=== PATIENT | female | born 1955 | race Two or more races ===

== ENCOUNTER 2025-04-30 18:22 | Inpatient (IN) | payer MEDICARE, MEDICAID ==
[~2025-04-30] VITALS: Ht 160 cm; Wt 62.6 kg
[2025-04-30] MEDS ORDERED: ONDANSETRON HCL/PF 4 MG/2 ML VIAL ONE (18:59)
[2025-04-30] MEDS ORDERED: FAMOTIDINE/PF INJ 20 MG/2 ML VIAL IV ONE (18:59)
[2025-04-30 19:52] LABS: PLATELET COUNT (AUTO) 310 K/uL (150-450); RED BLOOD CELL COUNT(AUTO) 4.15 MIL/uL (4.0-5.2); RED CELL DISTRIBUTION WIDTH 14.2 % (11.5-15.0); WHITE BLOOD COUNT (AUTO) 12.9 K/uL (4.3-11.0)
[2025-04-30 19:59] LABS: CALCIUM, SERUM 9.5 mg/dL (8.5-10.1); CREATININE 0.9 mg/dL (0.6-1.3); SODIUM SERUM 123 mmol/L (136-145); UREA NITROGEN, BLOOD 16 mg/dL (7-18)
[2025-04-30 20:05] LABS: ASPARTATE AMINOTRANSFERASE 41 U/L (15-37); TOTAL PROTEIN, SERUM 8.4 g/dL (6.4-8.2)
[2025-04-30] MEDS: ONDANSETRON HCL/PF 4 MG/2 ML VIAL IVP ONE (20:18)
[2025-04-30] MEDS ORDERED: KETOROLAC TROMETHAMINE INJ 30 MG/ML VIAL ONE (20:18)
[2025-04-30] MEDS: FAMOTIDINE/PF INJ 20 MG/2 ML VIAL IV ONE (20:18)
[2025-04-30] MEDS: IV NS 0.9% 1,000 ML BAG IV ONE (20:18)
[2025-04-30] MEDS: KETOROLAC TROMETHAMINE INJ 30 MG/ML VIAL IV ONE (20:19)
[2025-04-30 20:50] LABS: APPEARANCE,URINE CLEAR (CLEAR); BLOOD, URINE NEGATIVE Ery/uL (NEGATIVE); LEUKOCYTE ESTERASE ,URINE NEGATIVE (NEGATIVE); NITRITE, URINE NEGATIVE (NEGATIVE); UGLUCOSE NEGATIVE (NEGATIVE)
[2025-04-30 21:05] LABS: ADD URINE CULTURE NO; SQUAMOUS EPITHELIAL CELL,UR Few /HPF (None Seen)
[2025-04-30] MEDS: METOCLOPRAMIDE HCL 10 MG/2 ML VIAL IV ONE (21:12)
[2025-04-30 23:00] VITALS: BP_SYST 176; BP_SYST 220; BP_DIAS 110; BP_DIAS 90; TEMP 98.1; O2SAT 97
[2025-05-01] MEDS: hydrALAZINE HCL IV 20 MG VIAL IV PRN (00:33)
[2025-05-01] MEDS: IV NS 0.9% 1,000 ML IV PRN (01:39)
[2025-05-01] MEDS: KETOROLAC TROMETHAMINE 15 MG/ML VIAL IV PRN (03:19)
[2025-05-01 03:57] VITALS: BP 157/74; TEMP 98.1; O2SAT 97
[2025-05-01 06:58] LABS: PLATELET COUNT (AUTO) 292 K/uL (150-450); RED BLOOD CELL COUNT(AUTO) 3.97 MIL/uL (4.0-5.2); RED CELL DISTRIBUTION WIDTH 14.2 % (11.5-15.0); WHITE BLOOD COUNT (AUTO) 12.1 K/uL (4.3-11.0)
[2025-05-01 07:13] LABS: ASPARTATE AMINOTRANSFERASE 40.0 U/L (15-37); CALCIUM, SERUM 8.7 mg/dL (8.5-10.1); CREATININE 0.7 mg/dL (0.6-1.3); PHOSPHORUS 3.4 mg/dL (2.5-4.9); SODIUM SERUM 125.0 mmol/L (136-145); TOTAL PROTEIN, SERUM 7.8 g/dL (6.4-8.2); UREA NITROGEN, BLOOD 12.0 mg/dL (7-18)
[2025-05-01 07:30] VITALS: BP 172/78; TEMP 98.2; O2SAT 94
[2025-05-01 07:38] LABS: LDL 108.0 mg/dL (0-99)
[2025-05-01] MEDS: FAMOTIDINE/PF INJ 20 MG/2 ML VIAL IV SCH (08:31)
[2025-05-01] MEDS: ENOXAPARIN SODIUM 40 MG/0.4 ML DISP.SYRIN SQ SCH (09:00)
[2025-05-01] MEDS ORDERED: MAGN400O6 PO (12:27)
[2025-05-01] MEDS ORDERED: INSU100I30 SQ (12:27)
[2025-05-01] MEDS ORDERED: AMLO-213 PO (12:27)
[2025-05-01] MEDS ORDERED: CRAN400C PO (12:27)
[2025-05-01] MEDS ORDERED: NALO4SPR NS (12:27)
[2025-05-01] MEDS ORDERED: HYDR-3972 PO (12:27)
[2025-05-01] MEDS ORDERED: GABA-536 PO (12:27)
[2025-05-01] MEDS ORDERED: HYDR-4077 PO (12:27)
[2025-05-01] MEDS ORDERED: GLUC1KIT IJ (12:27)
[2025-05-01] MEDS ORDERED: FLUT16SP16 NS (12:27)
[2025-05-01] MEDS ORDERED: ASPI-1169 PO (12:27)
[2025-05-01] MEDS ORDERED: AMIN30LI66 PO (12:27)
[2025-05-01] MEDS ORDERED: GABA800T11 PO (12:27)
[2025-05-01] MEDS ORDERED: PANT40TA49 PO (12:27)
[2025-05-01] MEDS ORDERED: ACET-73 PO (12:27)
[2025-05-01] MEDS ORDERED: BISA10SU11 RC (12:27)
[2025-05-01] MEDS ORDERED: ONDA4TAB11 PO (12:27)
[2025-05-01] MEDS ORDERED: SENN8.6T19 PO (12:27)
[2025-05-01] MEDS ORDERED: LISI10TA29 PO (12:27)
[2025-05-01] MEDS ORDERED: LUBI24CA5 PO (12:27)
[2025-05-01] MEDS ORDERED: IBUP-2314 PO (12:27)
[2025-05-01] MEDS ORDERED: INSU100V11 SQ (12:27)
[2025-05-01] MEDS ORDERED: GUAI100S9 PO (12:27)
[2025-05-01] MEDS ORDERED: NA P133E RC (12:27)
[2025-05-01] MEDS ORDERED: INSU100V42 SQ (12:27)
[2025-05-01] MEDS ORDERED: ACET325T53 PO (12:27)
[2025-05-01] MEDS ORDERED: MELA1TAB27 PO (12:27)
[2025-05-01] MEDS ORDERED: APIX2.5T PO (12:27)
[2025-05-01] MEDS ORDERED: TRAM50TA2 PO (12:27)
[2025-05-01] MEDS ORDERED: CYCL30DR EACHEYE (12:27)
[2025-05-01] MEDS ORDERED: GLIP10TA11 PO (12:27)
[2025-05-01] MEDS ORDERED: METF-442 PO (12:27)
[2025-05-01] MEDS ORDERED: POLY15DR31 EACHEYE (12:27)
[2025-05-01] MEDS ORDERED: DOCU100T2 PO (12:27)
[2025-05-01] MEDS: SPIRONOLACTONE 25 MG TABLET PO SCH (12:46)
[2025-05-01 16:00] VITALS: BP 201/88; TEMP 98.6; O2SAT 97
[2025-05-01] MEDS: INSULIN REGULAR, HUMAN 100 UNIT/ML 3 ML VIAL SQ PRN (17:25)
[2025-05-01] MEDS ORDERED: DEXTROSE 50%-WATER 50 ML DISP.SYRIN IV PRN (17:30)
[2025-05-01] MEDS ORDERED: GABAPENTIN 400 MG CAPSULE PO PRN (17:30)
[2025-05-01] MEDS: BLOOD SUGAR DIAGNOSTIC 1 EACH STRIP IN SCH (17:53)
[2025-05-01 20:00] VITALS: BP 174/72; TEMP 98.2; O2SAT 95
[2025-05-01 20:45] VITALS: BP 152/69; O2SAT 98
[2025-05-01] MEDS: CARBOXYMETHYLCELLULOSE SODIUM 1 EA TUBE EACHEYE SCH (21:52)
[2025-05-01] MEDS: SENNOSIDES 8.6 MG TABLET PO SCH (21:53)
[2025-05-01] MEDS: APIXABAN 2.5 MG TABLET PO SCH (21:56)
[2025-05-01] MEDS: TRAMADOL HCL 50 MG TABLET PO PRN (22:02)
[2025-05-02 06:13] LABS: PLATELET COUNT (AUTO) 265 K/uL (150-450); RED BLOOD CELL COUNT(AUTO) 4.00 MIL/uL (4.0-5.2); RED CELL DISTRIBUTION WIDTH 14.0 % (11.5-15.0); WHITE BLOOD COUNT (AUTO) 10.3 K/uL (4.3-11.0)
[2025-05-02 06:37] LABS: ASPARTATE AMINOTRANSFERASE 37.0 U/L (15-37); CALCIUM, SERUM 9.0 mg/dL (8.5-10.1); CREATININE 0.7 mg/dL (0.6-1.3); PHOSPHORUS 3.4 mg/dL (2.5-4.9); SODIUM SERUM 129.0 mmol/L (136-145); TOTAL PROTEIN, SERUM 7.8 g/dL (6.4-8.2); UREA NITROGEN, BLOOD 13.0 mg/dL (7-18)
[2025-05-02 06:38] LABS: SERUM AMMONIA 17.0 umol/L (11-32)
[2025-05-02] MEDS: PANTOPRAZOLE 40 MG TABLET.DR PO SCH (06:45)
[2025-05-02] MEDS: GABAPENTIN 400 MG CAPSULE PO SCH (08:15)
[2025-05-02] MEDS: DOCUSATE SODIUM 100 MG CAPSULE PO SCH (08:16)
[2025-05-02] MEDS: LACTULOSE 10 G/15 ML UDC (PYXIS) PO SCH (08:16)
[2025-05-02] MEDS: LISINOPRIL (20MG) 20 MG TABLET PO SCH (08:16)
[2025-05-02] MEDS: METFORMIN 500 MG TABLET PO SCH (08:16)
[2025-05-02] MEDS: AMLODIPINE BESYLATE 10 MG TABLET PO SCH (08:16)
[2025-05-02] MEDS: ASPIRIN 81 MG TAB.CHEW PO SCH (08:16)
[2025-05-02] MEDS: FAMOTIDINE (20 MG) 20 MG TABLET PO SCH (08:48)
[2025-05-02] MEDS: INSULIN GLARGINE, 100 UNIT/ML CARTRIDGE SQ SCH (09:00)
[2025-05-02] MEDS ORDERED: Medication Not On Formulary EA (Lubiprostone (Amitiza) 24 MCG) PO SCH (09:00)
[2025-05-02] MEDS: PROSOURCE / PROSTAT (PYXIS) 30 ML UDC PO SCH (09:02)
[2025-05-02 09:52] VITALS: BP 197/83; TEMP 97.7; O2SAT 98
[2025-05-02 16:14] LABS: INR 1.14 (0.91-1.10)
[2025-05-02 20:00] VITALS: BP 103/55; TEMP 98.1; O2SAT 96
[2025-05-03 07:00] VITALS: BP 138/71; TEMP 98.1; O2SAT 98
[2025-05-03 07:55] LABS: ASPARTATE AMINOTRANSFERASE 51 U/L (15-37); CALCIUM, SERUM 8.7 mg/dL (8.5-10.1); CREATININE 0.9 mg/dL (0.6-1.3); SODIUM SERUM 128 mmol/L (136-145); TOTAL PROTEIN, SERUM 7.8 g/dL (6.4-8.2); UREA NITROGEN, BLOOD 15 mg/dL (7-18)
[2025-05-03] MEDS: ONDANSETRON HCL/PF 4 MG/2 ML VIAL IVP PRN (09:09)
[2025-05-03] MEDS: LACTULOSE 20 G/30 ML UDC PO SCH (09:15)
[2025-05-03 15:00] VITALS: BP 112/56; TEMP 98.2; O2SAT 95
[2025-05-03 20:00] VITALS: BP 146/69; TEMP 97.9; O2SAT 98
[2025-05-04 06:50] LABS: PLATELET COUNT (AUTO) 290 K/uL (150-450); RED BLOOD CELL COUNT(AUTO) 3.86 MIL/uL (4.0-5.2); RED CELL DISTRIBUTION WIDTH 14.7 % (11.5-15.0); WHITE BLOOD COUNT (AUTO) 10.8 K/uL (4.3-11.0)
[2025-05-04 07:10] LABS: CALCIUM, SERUM 9.0 mg/dL (8.5-10.1); CREATININE 0.9 mg/dL (0.6-1.3); PHOSPHORUS 4.0 mg/dL (2.5-4.9); SODIUM SERUM 131.0 mmol/L (136-145); UREA NITROGEN, BLOOD 18.0 mg/dL (7-18)
[2025-05-04 08:00] VITALS: BP 164/74; TEMP 97.6; O2SAT 98
[2025-05-04 10:51] VITALS: BP 184/79
== END 2025-05-04 12:30 | DRG 433 ==
LOC: ER 18:38 → MED 22:35
PROVIDERS: ADMIT Nurse Practitioner Family; ATTEND Nurse Practitioner Acute Care
DX: K74.60 Unspecified cirrhosis of liver (principal); E44.1 Mild protein-calorie malnutrition; E87.1 Hypo-osmolality and hyponatremia; E88.09 Other disorders of plasma-protein metabolism, not elsewhere classified; D72.829 Elevated white blood cell count, unspecified; E11.9 Type 2 diabetes mellitus without complications; I10 Essential (primary) hypertension; J45.909 Unspecified asthma, uncomplicated; E86.0 Dehydration; K59.00 Constipation, unspecified; Z90.49 Acquired absence of other specified parts of digestive tract; Z79.84 Long term (current) use of oral hypoglycemic drugs; Z68.24 Body mass index [BMI] 24.0-24.9, adult; Z79.4 Long term (current) use of insulin; K21.00 Gastro-esophageal reflux disease with esophagitis, without bleeding
CPT/HCPCS: 36415; 71045-TC; 76700-TC; 76705-TC; 80048-TC; 80053-TC; 80061-TC; 80076-TC; 81001; 82140-TC; 82962-TC; 83690-TC; 83735-TC; 84100-TC; 84439-TC; 84443-TC; 84484-TC; 84550-TC; 85025-TC; 85610-TC; 85730-TC; 87086-TC; A4223; G0378; J0360; J1308; J1815; J1885; J2405; J2765; J7030; J7120